=== PATIENT | male | born 1960 | race Caucasian/White ===

== ENCOUNTER 2019-08-23 08:58 | Outpatient (CLI) | payer OTHER ==
[2019-08-23 09:20] LABS: BASOPHILS % (AUTO) 0.7 % (0.0-2.0); EOSINOPHILS # (AUTO) 0.1 K/uL (0-0.4); EOSINOPHILS % (AUTO) 1.2 % (0.0-4.0); HEMATOCRIT 46.4 % (36-52); HEMOGLOBIN 15.5 g/dL (12.0-18.0); LYMPHOCYTES # (AUTO) 1.1 K/uL (2.0-11.5); LYMPHOCYTES % (AUTO) 25.5 % (20.5-51.1); MEAN CORPUSCULAR HEMOGLOBIN 30 pg (27-31); MEAN CORPUSCULAR HGB CONC 33 g/dL (33-37); MEAN CORPUSCULAR VOLUME 88.9 fL (80-94); MONOCYTES # (AUTO) 0.4 K/uL (0.8-1.0); MONOCYTES % (AUTO) 8.1 % (1.7-9.3); NEUTROPHILS # (AUTO) 2.8 K/uL (1.8-7.7); NEUTROPHILS % (AUTO) 64.5 % (42.2-75.2); PLATELET COUNT (AUTO) 178 K/uL (140-450); RED BLOOD CELL COUNT(AUTO) 5.22 MIL/uL (4.20-6.10); RED CELL DISTRIBUTION WIDTH 13.4 % (11.6-13.7); WHITE BLOOD COUNT (AUTO) 4.4 K/uL (4.8-10.8)
[2019-08-23 09:56] LABS: ALBUMIN 4.1 g/dL (3.4-5.0); ANION GAP 11.6 (8-16); CARBON DIOXIDE 30.4 mmol/L (21-32); CHOL/HDL RATIO 3.1 (1-4.5); CREATININE 0.9 mg/dL (0.6-1.3); TOTAL BILIRUBIN 0.4 mg/dL (0.0-1.0)
[2019-08-24 08:10] LABS: PROSTATE SPEC AG TOTAL 1.3 ng/mL (0.0-4.0); T4 (THYROXINE) 6.7 ug/dL (4.5-12.0); THYROID PEROXIDASE (TPO) AB <9 IU/mL (0-34)
== END 2019-08-23 20:41 | disposition home or self-care (01) ==
LOC: MLB 08:58
DX: Z00.00 Encounter for general adult medical examination without abnormal findings (principal); N40.1 Benign prostatic hyperplasia with lower urinary tract symptoms; R53.83 Other fatigue
CPT/HCPCS: 36415; 80053; 83036; 84153; 84403; 84436; 84443; 84479; 85025; 86376; 86800

== ENCOUNTER 2021-01-31 07:41 | Outpatient (CLI) | payer OTHER ==
[2021-01-31 08:55] LABS: BASOPHILS % (AUTO) 0.4 % (0.0-2.0); EOSINOPHILS % (AUTO) 0.9 % (0.0-4.0); HEMATOCRIT 45.8 % (36-52); HEMOGLOBIN 15.6 g/dL (12.0-18.0); LYMPHOCYTES # (AUTO) 0.9 K/uL (2.0-11.5); LYMPHOCYTES % (AUTO) 16.3 % (20.5-51.1); MEAN CORPUSCULAR HEMOGLOBIN 30 pg (27-31); MEAN CORPUSCULAR HGB CONC 34 g/dL (33-37); MEAN CORPUSCULAR VOLUME 87.6 fL (80-94); MONOCYTES # (AUTO) 0.5 K/uL (0.8-1.0); MONOCYTES % (AUTO) 8.3 % (1.7-9.3); NEUTROPHILS # (AUTO) 4.2 K/uL (1.8-7.7); NEUTROPHILS % (AUTO) 74.1 % (42.2-75.2); PLATELET COUNT (AUTO) 203 K/uL (140-450); RED BLOOD CELL COUNT(AUTO) 5.22 MIL/uL (4.20-6.10); RED CELL DISTRIBUTION WIDTH 13.4 % (11.6-13.7); WHITE BLOOD COUNT (AUTO) 5.7 K/uL (4.8-10.8)
[2021-01-31 09:35] LABS: ALBUMIN 4.3 g/dL (3.4-5.0); ANION GAP 9.6 (8-16); CARBON DIOXIDE 32.2 mmol/L (21-32); CHOL/HDL RATIO 3.2 (1-4.5); CREATININE 0.8 mg/dL (0.6-1.3); POTASSIUM 4.8 mmol/L (3.5-5.1); THYROID STIMULATING HORMONE 1.49 uIU/mL (0.34-3.74); TOTAL BILIRUBIN 0.4 mg/dL (0.0-1.0)
[2021-02-01 17:59] LABS: PROSTATE SPEC AG TOTAL 1.2 ng/mL (0.0-4.0)
== END 2021-01-31 19:49 | disposition home or self-care (01) ==
LOC: MLB 07:41
PROVIDERS: ATTEND Family Medicine
DX: R29.898 Other symptoms and signs involving the musculoskeletal system (principal)
CPT/HCPCS: 36415; 76881; 80053; 83036; 84153; 84443; 85025; Q0092